=== PATIENT | male | born 1955 | race Caucasian/White ===

== ENCOUNTER 2021-01-28 11:40 | Emergency (ER) | payer OTHER ==
[~2021-01-28 11:40] MED LIST: ASPIRIN325 MG PO; CELEXA20 M1 PO; COZAAR100 MG PO; DEPAKOTE500 MG PO; GLIPIZIDE5 MG PO; GLUCOTROL5 MG PO; MOBIC7.5 MG PO; NORCO 5-325 TA1 EACH PO; NORCO 7.5-3251 EACH PO; PHENERGAN25 M1 PO; ZOFRAN4 MG PO
[2021-01-28] MEDS ORDERED: CYCLOBENZAPRINE10 MG PO (16:10)
[2021-01-28] MEDS ORDERED: NORCO 5-325 TA1 EACH PO (16:10)
== END 2021-01-28 16:24 | disposition home or self-care (01) ==
LOC: FER 11:40
DX: S76.312A Strain of muscle, fascia and tendon of the posterior muscle group at thigh level, left thigh, initial encounter (principal); I10 Essential (primary) hypertension; Z88.0 Allergy status to penicillin; Z79.82 Long term (current) use of aspirin; Z79.899 Other long term (current) drug therapy; X50.1XXA Overexertion from prolonged static or awkward postures, initial encounter; Y92.89 Other specified places as the place of occurrence of the external cause; Y99.0 Civilian activity done for income or pay
CPT/HCPCS: 73564

== ENCOUNTER 2021-02-16 17:52 | Emergency (ER) | payer OTHER ==
[~2021-02-16 17:52] MED LIST changes: +CYCLOBENZAPRINE10 MG PO
[2021-02-16 21:07] LABS: BASOPHIL 0.6 % (0-2); EOSINOPHIL 0.6 % (0-7); HCT 45.2 % (42.0-52.0); HGB 14.5 g/dl (13.2-18.0); LYMPHOCYTE 20.9 % (15-48); MCH 28.9 pg (25.0-31.0); MCHC 32.1 g/dL (32.0-36.0); MONOCYTE 23.2 % (0-12); MPV 10.5 fL (6.0-9.5); NRBC 0; PLT 123 K/uL (150-400); RBC 5.02 M/uL (4.70-6.00); RDW 14.5 % (11.5-14.0); WBC 7.3 K/uL (4.0-10.5)
[2021-02-16 21:09] LABS: NEUTROPHIL 53.2 % (41-80)
[2021-02-16 21:26] LABS: ALBUMIN 3.9 g/dL (3.4-5.0); BILIRUBIN - TOTAL 0.4 mg/dL (0.2-1.0); BUN/CREAT RATIO (CALC) 24.1 RATIO; CREATININE 0.87 mg/dL (0.67-1.17); GLOBULIN (CALCULATION) 4.7 g/dL; POTASSIUM 4.3 mmol/L (3.5-5.1); TOTAL PROTEIN 8.6 g/dL (6.4-8.2)
== END 2021-02-16 23:51 | disposition home or self-care (01) ==
LOC: FER 17:52
PROVIDERS: Internal Medicine
DX: U07.1 COVID-19 (principal); I10 Essential (primary) hypertension; E11.9 Type 2 diabetes mellitus without complications; Z23 Encounter for immunization; Z88.0 Allergy status to penicillin
CPT/HCPCS: 36415; 71045; 80053; 83605; 84145; 85025; M0243; Q0244